=== PATIENT | male | born 1965 | race African-American/Black ===

== ENCOUNTER 2021-12-05 08:13 | Emergency (ER) | payer OTHER ==
[2021-12-05 08:24] VITALS: BP 120/88; PULSE 106; RESP 16; TEMP 99.2; BMI 21.7
[2021-12-05 11:25] LABS: BASO % 0.3 % (0-2.0); EOS % 0.4 % (0-4.5); HEMATOCRIT 42.8 % (35.4-49); HEMOGLOBIN 14.2 GM/dL (11.7-16.9); LYMPH % 15.8 % (8-40); MCH 29.3 pg (25.7-33.7); MCHC 33.2 g/dl (32.0-35.9); MEAN CELL VOLUME 88.3 fl (80-96); MEAN PLT VOLUME 8.3 fl (7.5-11.1); MONO % 10.6 % (3.8-10.2); NEUT % 72.9 % (42.8-82.8); PLATELET COUNT 249 10^3/uL (134-434); RBC 4.84 M/mm3 (4.00-5.60); RDW 13.3 % (11.9-15.9); WHITE BLOOD COUNT 12.8 K/mm3 (4.0-10.0)
[2021-12-05 11:29] LABS: CALCIUM 9.1 mg/dL (8.5-10.1)
[2021-12-05 11:30] LABS: ALBUMIN 4.1 g/dl (3.4-5.0); BLOOD UREA NITROGEN 14.2 mg/dL (7-18)
[2021-12-05 11:33] LABS: CREATININE 0.9 mg/dL (0.55-1.3)
[2021-12-05 11:35] LABS: BILIRUBIN,TOTAL 0.9 mg/dL (0.2-1); TOT PROT 8.2 g/dl (6.4-8.2)
== END 2021-12-05 14:15 ==
LOC: JER 08:13
DX: K04.7 Periapical abscess without sinus (principal)
CPT/HCPCS: 36415; 70487-TC; 80053; 85025; 99285-25; Q9967